=== PATIENT | female | born 1945 | race Caucasian/White ===

== ENCOUNTER 2019-06-11 16:20 | Emergency (ER) | payer MEDICARE, OTHER ==
--- NOTE | 2019-06-11 16:52 | Emergency Department Record ---
History of Present Illness - General Chief complaint: Extremity Problem Stated complaint: PAINFUL FOOT Time Seen by Provider: 06/11/19 16:35 Source: Patient Mode of Arrival: Ambulatory Limitations: No limitations - History of Present Illness Initial comments: The patient is here due to R foot pain for 2 days. She denies any specific injury but states she has been doing a lot of walking recently. Now there is pain and swelling to the top of the R foot. Complaint: Extremity pain Onset/Timin -: Days(s) Location: Right, Foot History of Same: No Severity scale (1-10): 5 Quality: Aching Consistency: Constant Improves with: Nothing Worsens with: Walking, Weight bearing - Related Data Home Medications Medication Instructions Recorded Confirmed Last Taken Amiodarone HCl [Pacerone] 100 mg PO DAILY 06/11/19 06/11/19 06/11/19 Escitalopram Oxalate [Lexapro] 10 mg PO DAILY 06/11/19 06/11/19 06/11/19 Lisinopril 20 mg PO DAILY 06/11/19 06/11/19 06/11/19 Multivitamin [Multi-Vitamin Daily] 1 each PO DAILY 06/11/19 06/11/19 06/11/19 Rivaroxaban [Xarelto] 20 mg PO DAILY 06/11/19 06/11/19 06/11/19 Simvastatin [Zocor] 10 mg PO DAILY 06/11/19 06/11/19 06/11/19 Allergies Allergy/AdvReac Type Severity Reaction Status Date / Time aspirin Allergy RASH Verified 06/11/19 16:28 Travel Screening - Travel/Exposure Within Last 30 Days Have you traveled within the last 30 days?: No - Travel/Exposure Within Last Year Have you traveled outside the [place] in the last year?: No - Additonal Travel Details Have you been exposed to anyone with a communicable illness?: No - Travel Symptoms Symptom Screening: None Review of Systems Constitutional: Denies: Chills Eyes: Denies: Eye discharge ENT: Denies: Congestion Respiratory: Denies: Cough Past Medical History - SOCIAL HISTORY Smoking Status: Never smoker Alcohol Use: None Drug Use: None - RESPIRATORY Hx Respiratory Disorders: No - CARDIOVASCULAR Hx Cardio Disorders: Yes Hx Irregular Heartbeat: Yes (A Fib) - NEURO Hx Neuro Disorders: No - GI Hx GI Disorders: No - Hx Genitourinary Disorders: No - ENDOCRINE Hx Endocrine Disorders: No - MUSCULOSKELETAL Hx Musculoskeletal Disorders: Yes Hx Osteoporosis: Yes - PSYCH Hx Psych Problems: No - HEMATOLOGY/ONCOLOGY Hx Hematology/Oncology Disorders: No Family Medical History Any Significant Family History?: Yes Hx Heart Disease: Father, Mother Hx Kidney Disease: Mother Physical Exam - General General Appearance: Alert, Oriented x3, Cooperative, No acute distress - Head Head exam: Atraumatic - Eye Eye exam: Normal appearance - Extremities Extremities exam: Normal capillary refill, Tenderness (There is tenderness to the dorsal proximal R midfoot.). negative: Normal inspection (There is mild swelling to the doral mid midfoot area but with no bruising or erythema.), Full ROM Image of Feet: 1 - Area of pain and swelling. Course Vital Signs 06/11/19 16:34 Temperature 98.1 F Pulse Rate 66 Respiratory 18 Rate Blood Pressure 108/71 Pulse Ox 96 - Reevaluation(s) Reevaluation #1: I did discuss the neg xrays for any acute fx or dislocation with the patient. She is to ice and elevate the R foot and is to see a foot doctor next week if not better. 06/11/19 17:37 Medical Decision Making - Data Complexity MDM Data: X-Ray Ordered and/or Reviewed - Radiology Data Radiology results: Report reviewed (R foot: mulitlevel deg joint changes, soft tissue swelling dorsally. Neg for acute changes.) Disposition Disposition: Discharge Clinical Impression: Foot pain, right Disposition: Home, Self-Care Condition: (2) Stable Instructions: Arthralgia (ED) Additional Instructions: Please use the hard soled shoe for a week and ice and elevate the foot. Use Tylenol for pain. Please see a foot doctor next week for recheck. Return to the ER for any worsening issues. Forms: Patient Portal Access Time of Disposition: 17:34 Quality - Quality Measures Quality Measures: N/A - Blood Pressure Screening View Details: Yes Does Patient Have Any of the Following: No Blood Pressure Classification: Normal BP Reading Systolic Measurement: 108 Diastolic Measurement: 71 Screening for High Blood Pressure: < Normal BP, F/U Not Required > [G8784]
--- NOTE | 2019-06-12 20:56 | RADIOLOGY REPORT ---
EXAM: FOOT, RIGHT 3 VIEWS HISTORY: PAIN AND SWELLING RIGHT FOOT AFTER WALKING ON [place]. TECHNIQUE: Three views right foot. COMPARISON: None. ENCOUNTER: Initial. FINDINGS: No definite acute fracture or dislocation of the right foot identified. 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 Prominent calcaneal spurs along the plantar surface, less so posteriorly as well. Some soft tissue swelling overlying the dorsal aspect of the foot proximally at the level of the tarsals. IMPRESSION: 1. MULTILEVEL DEGENERATIVE CHANGE IN THE RIGHT FOOT, DETAILED ABOVE. 2. SOME SOFT TISSUE SWELLING ALONG THE DORSAL ASPECT OF THE FOOT PROXIMALLY. 3. NO DEFINITE ACUTE FRACTURE OF THE RIGHT FOOT IDENTIFIED. JOB NUMBER: [id number] MTDD
== END 2019-06-11 17:39 | disposition home or self-care (01) ==
LOC: ER 16:20
DX: M79.671 Pain in right foot (principal); G89.11 Acute pain due to trauma; X50.0XXA Overexertion from strenuous movement or load, initial encounter; Y93.01 Activity, walking, marching and hiking
CPT/HCPCS: 99283

== ENCOUNTER 2019-08-30 10:12 | Emergency (ER) | payer MEDICARE, OTHER ==
--- NOTE | 2019-08-30 11:28 | RADIOLOGY REPORT ---
EXAMINATION: Left Knee, Three Views EXAM DATE: 08/30/2019 11:15 AM TECHNIQUE: Frontal, lateral, and oblique INDICATION: fall COMPARISON: None ENCOUNTER: Initial FINDINGS: Normal bony architecture. Arthroplasty. No acute fracture or dislocation. IMPRESSION: No acute abnormality, follow-up bone scan if symptoms persist Dictated by: Johnson Rodríguez MD on 08/30/2019 11:24 AM. .
--- NOTE | 2019-08-30 11:30 | CT SCAN REPORT ---
EXAMINATION: CT Head without IV Contrast EXAM DATE: 08/30/2019 11:19 AM TECHNIQUE: Standard protocol CT images of the head were obtained without intravenous contrast. Dunn l and sagittal reconstructed images were created. INDICATION: fall COMPARISON: None HAND DOMINANCE: Unknown. ENCOUNTER: Not applicable FINDINGS: Small right forehead soft tissue hematoma. No acute intracranial hemorrhage or depressed calvarial fr acture. Mild volume loss not unusual for age with corresponding ventricular enlargement. Partial empty sella noted. Moderate low-attenuation changes in the periatrial white matter are nonspecific but may be due to old small vessel ischemic change. No mass or acute cortical infarct evident. Prior bilateral lens surgery. Incidental focus of fat deposition along the frontal falx noted. IMPRESSION: 1. Soft tissue injury without acute intracranial hemorrhage. 2. Aging changes and old small vessel ischemic changes. Dictated by: Haja Waldrop MD on 08/30/2019 11:24 AM. .
--- NOTE | 2019-08-30 11:33 | CT SCAN REPORT ---
EXAMINATION: MAXILLOFACIAL WO CONTRAST EXAM DATE: 08/30/2019 11:19 AM TECHNIQUE: Standard axial noncontrast CT facial bones with sagittal and coronal 2-dimensional recons tructions. INDICATION: fall COMPARISON: Concurrent CT brain and CT cervical spine studies. ENCOUNTER: Initial FINDINGS: No acute facial fracture evident. Mild paranasal sinus mucosal thickening. Mild degenerative changes at the temporomandibular joints. Prior bilateral lens surgery. Cervical spine degenerative changes are partially included. Right forehead soft tissue hematoma noted . IMPRESSION: No acute facial fracture evident. Dictated by: Haja Waldrop MD on 08/30/2019 11:28 AM. .
--- NOTE | 2019-08-30 11:38 | CT SCAN REPORT ---
EXAMINATION: CT Cervical Spine without IV Contrast EXAM DATE: 08/30/2019 11:19 AM TECHNIQUE: Standard protocol cervical spine CT imaging was performed without intravenous contrast. Co bakari and sagittal images were reconstructed. INDICATION: fall COMPARISON: None ENCOUNTER: Not applicable FINDINGS: No acute cervical spine fracture evident. Dystrophic calcifications at the craniocervical junction are noted. There is fusion across the right C2-C3 and C3-C4 facet joints and across the left C3-C4 facet joint. Fusion across the C3-C4 disc spac e level. Minimal spondylolisthesis at C3-C4. Large osteophyte at C4-C5 anteriorly nearly bridges the disc space level. Mild endplate spurring and moderate right facet spurring at that level. Fusion across the C5-C6 disc space level and partial fusion across the left facet joint. Bridging ant erior osteophyte at C6-C7. Moderate anterior osteophyte at C7-T1. Carotid bifurcation region calcific atherosclerotic changes are noted. IMPRESSION: 1. No acute cervical spine fracture. 2. Moderate degenerative changes with multilevel fusions. Dictated by: Haja Waldrop MD on 08/30/2019 11:31 AM. .
--- NOTE | 2019-08-30 11:53 | Emergency Department Record ---
History of Present Illness - General Chief Complaint: Fall Injury Stated Complaint: FALL/HEAD INJURY Time Seen by Provider: 08/30/19 10:20 Source: Patient Mode of Arrival: Wheelchair Limitations: No limitations - History of Present Illness Initial Comments: pt slipped on ice and fell face forward. she injured her face and l knee and l hand. she had no loc MD Complaint: Fall Onset/Timin -: Minutes(s) Fall From: Standing When Fall Occurred: 1-3 hours [employer] Fall Witnessed: Yes, by family Place Fall Occurred: Home Loss of Consciousness: None Prolonged Down Time?: No Symptoms Prior to Fall: None Location: Face Location - Extremities: Left: Hand, Knee Severity: Moderate Severity scale (1-10): 7 Quality: Aching - Ivis Coma Scale Eye Response: (4) Open spontaneously Motor Response: (6) Obeys commands Verbal Response: (5) Oriented Ivis Total: 15 - Related Data Allergies Allergy/AdvReac Type Severity Reaction Status Date / Time aspirin Allergy ABDOMINAL Unverified 08/30/19 10:21 PAIN Travel Screening - Travel/Exposure Within Last 30 Days Have you traveled within the last 30 days?: Yes Location Detail:: Pt from [place] - Travel/Exposure Within Last Year Have you traveled outside the [place] in the last year?: No - Additonal Travel Details Have you been exposed to anyone with a communicable illness?: No - Travel Symptoms Symptom Screening: None Review of Systems Reviewed: No additional complaints except as noted below Constitutional: Reports: As per HPI. Denies: Chills, Fever, Malaise, Night sweats, Weakness, Weight change Eyes: Reports: As per HPI. Denies: Eye discharge, Eye pain, Photophobia, Vision change ENT: Reports: As per HPI. Denies: Congestion, Dental pain, Ear pain, Epistaxis, Hearing loss, Throat pain Respiratory: Reports: As per HPI. Denies: Cough, Dyspnea, Hemoptysis, Stridor, Wheezes Cardiovascular: Reports: As per HPI. Denies: Arrhythmia, Chest pain, Dyspnea on exertion, Edema, Murmurs, Orthopnea, Palpitations, Paroxysmal nocturnal dyspnea, Rheumatic Fever, Syncope Endocrine: Reports: As per HPI. Denies: Fatigue, Heat or cold intolerance, Polydipsia, Polyuria Gastrointestinal: Reports: As per HPI. Denies: Abdominal pain, Constipation, Diarrhea, Hematemesis, Hematochezia, Melena, Nausea, Vomiting Genitourinary: Reports: As per HPI. Denies: Abnormal menses, Discharge, Dyspareunia, Dysuria, Frequency, Hematuria, Incontinence, Retention, Urgency Musculoskeletal: Reports: As per HPI. Denies: Arthralgia, Back pain, Gout, Joint swelling, Myalgia, Neck pain Skin: Reports: As per HPI. Denies: Bruising, Change in color, Change in hair/nails, Lesions, Pruritus, Rash Neurological: Reports: As per HPI. Denies: Abnormal gait, Confusion, Headache, Numbness, Paresthesias, Seizure, Tingling, Tremors, Vertigo, Weakness Psychiatric: Reports: As per HPI. Denies: Anxiety, Auditory hallucinations, Depression, Homicidal thoughts, Suicidal thoughts, Visual hallucinations Hematological/Lymphatic: Reports: As per HPI. Denies: Anemia, Blood Clots, Easy bleeding, Easy bruising, Swollen glands Past Medical History - SOCIAL HISTORY Smoking Status: Never smoker Alcohol Use: None Drug Use: None - RESPIRATORY Hx Respiratory Disorders: No - CARDIOVASCULAR Hx Cardio Disorders: Yes Hx Hypertension: Yes Hx Irregular Heartbeat: Yes (A Fib) - NEURO Hx Neuro Disorders: No - GI Hx GI Disorders: No - Hx Genitourinary Disorders: No - ENDOCRINE Hx Endocrine Disorders: No Hx Diabetes: No Hx Thyroid Disease: No - MUSCULOSKELETAL Hx Musculoskeletal Disorders: Yes Hx Osteoporosis: Yes - PSYCH Hx Psych Problems: No - HEMATOLOGY/ONCOLOGY Hx Hematology/Oncology Disorders: No Family Medical History Any Significant Family History?: Yes Hx Heart Disease: Father, Mother Hx Kidney Disease: Mother Physical Exam - General General Appearance: Alert, Oriented x3, Cooperative, Mild distress - Head Head exam: Normal inspection Head exam detail: Abrasion, Contusion, Hematoma Image of Face/Head: 1 - abrasion, hematoma 2 - contusion, swelling - Eye Eye exam: Normal appearance, PERRL, EOMI Pupils: Normal accommodation - ENT ENT exam: Normal exam, Mucous membranes moist, Normal external ear exam, Normal orophraynx Ear exam: Normal external inspection. negative: External canal tenderness Nasal Exam: Normal inspection. negative: Discharge, Sinus tenderness Mouth exam: Normal external inspection, Tongue normal Teeth exam: Normal inspection. negative: Dental caries Throat exam: Normal inspection. negative: Tonsillar erythema, Tonsillar exudate - Neck Neck exam: Normal inspection, Full ROM. negative: Tenderness - Respiratory Respiratory exam: Normal lung sounds bilaterally. negative: Respiratory distress - Cardiovascular Cardiovascular Exam: Regular rate, Normal rhythm, Normal heart sounds - GI/Abdominal GI/Abdominal exam: Soft, Normal bowel sounds. negative: Tenderness - Rectal Rectal exam: Deferred - exam: Deferred - Extremities Extremities exam: Full ROM, Normal capillary refill, Tenderness (l knee with contusion) - Back Back exam: Reports: Normal inspection, Full ROM. Denies: Muscle spasm, Rash noted, Tenderness - Neurological Neurological exam: Alert, CN II-XII intact, Normal gait, Oriented X3 - Psychiatric Psychiatric exam: Normal affect, Normal mood - Skin Skin exam: Dry, Intact, Normal color, Warm Course Vital Signs 08/30/19 10:13 Temperature 98.6 F Pulse Rate 59 L Respiratory 18 Rate Blood Pressure 149/76 Pulse Ox 97 Disposition Disposition: Discharge Clinical Impression: Multiple contusions Head injury Qualifiers: Encounter type: initial encounter Qualified Code(s): S09.90XA - Unspecified injury of head, initial encounter Disposition: Home, Self-Care Condition: (1) Good Instructions: Head Injury (ED), Contusion in Adults (ED) Additional Instructions: follow up with family doctor. return sooner if worse. sleep elevated. ice to sore areas. tylenol for pain. skip next dose of xarelto. Quality - Quality Measures Quality Measures: N/A - Blood Pressure Screening Does Patient Have Any of the Following: Active Dx of HTN Blood Pressure Classification: Hypertensive Reading Systolic Measurement: 149 Diastolic Measurement: 76 Screening for High Blood Pressure: Patient Exclusion, Hx of HTN [G9744]
[2019-08-30] MEDS ORDERED: ACETAMINOPHEN 500 MG TABLET PO ONE (11:58)
== END 2019-08-30 12:15 | disposition home or self-care (01) ==
LOC: ER 10:12
DX: S80.02XA Contusion of left knee, initial encounter (principal); S60.222A Contusion of left hand, initial encounter; S00.83XA Contusion of other part of head, initial encounter; S00.81XA Abrasion of other part of head, initial encounter; W00.0XXA Fall on same level due to ice and snow, initial encounter; Y92.009 Unspecified place in unspecified non-institutional (private) residence as the place of occurrence of the external cause; I10 Essential (primary) hypertension; I48.91 Unspecified atrial fibrillation
CPT/HCPCS: 70450; 70486; 72125; 99285

== ENCOUNTER 2019-10-04 18:07 | Observation (INO) | payer MEDICARE, OTHER ==
--- NOTE | 2019-10-04 18:16 | Emergency Department Record ---
History of Present Illness - General Chief Complaint: Arrythmia/Palpitations Stated Complaint: AFIB Time Seen by Provider: 10/04/19 18:08 Source: Patient Mode of Arrival: Ambulatory Limitations: No limitations - History of Present Illness Initial Comments: 73 yo female presents to ED for evaluation of an irregular heart beat, reports a previous history of atrial fibrillation. Patient reports that she takes Pacerone daily, denies any changes in her medications. Patient is also anticoagulated with Xarelto daily. Patient denies fevers, chills, cough, or recent illness. Patient denies chest discomfort or history of GA previously. MD Complaint: Atrial fibrillation Onset/Timin -: Days(s) Arrythmia History: Atrial fibrillation Associated Symptoms: Shortness of breath Treatments Prior to Arrival: Amiodarone - Related Data Allergies Allergy/AdvReac Type Severity Reaction Status Date / Time aspirin AdvReac ABDOMINAL Unverified 10/04/19 18:11 PAIN Travel Screening - Travel/Exposure Within Last 30 Days Have you traveled within the last 30 days?: No Review of Systems Constitutional: Denies: Chills, Fever, Malaise, Night sweats Eyes: Denies: Eye discharge, Eye pain ENT: Denies: Congestion, Ear pain, Epistaxis Respiratory: Denies: Cough, Dyspnea Cardiovascular: Reports: Arrhythmia, Palpitations. Denies: Chest pain, Dyspnea on exertion Endocrine: Denies: Fatigue, Heat or cold intolerance Gastrointestinal: Denies: Abdominal pain, Nausea, Vomiting Genitourinary: Denies: Incontinence, Retention Musculoskeletal: Denies: Arthralgia, Back pain Skin: Denies: Bruising, Change in color Neurological: Denies: Abnormal gait, Confusion, Headache Psychiatric: Denies: Anxiety Hematological/Lymphatic: Reports: Easy bleeding, Easy bruising. Denies: Anemia, Blood Clots Past Medical History - SOCIAL HISTORY Smoking Status: Never smoker Drug Use: None - RESPIRATORY Hx Respiratory Disorders: No - CARDIOVASCULAR Hx Cardio Disorders: Yes Hx Hypertension: Yes Hx Irregular Heartbeat: Yes (A Fib) - NEURO Hx Neuro Disorders: No - GI Hx GI Disorders: No - Hx Genitourinary Disorders: No - ENDOCRINE Hx Endocrine Disorders: No Hx Diabetes: No Hx Thyroid Disease: No - MUSCULOSKELETAL Hx Musculoskeletal Disorders: Yes Hx Osteoporosis: Yes - PSYCH Hx Psych Problems: No - HEMATOLOGY/ONCOLOGY Hx Hematology/Oncology Disorders: No Family Medical History Hx Heart Disease: Father, Mother Hx Kidney Disease: Mother Physical Exam - General General Appearance: Alert, Oriented x3, Cooperative, Mild distress Limitations: No limitations - Head Head exam: Atraumatic, Normocephalic, Normal inspection Head exam detail: negative: Abrasion, Contusion, Priest's sign, General tenderness, Hematoma, Laceration - Eye Eye exam: Normal appearance. negative: Conjunctival injection, Periorbital swelling, Periorbital tenderness, Scleral icterus - ENT Ear exam: negative: Auricular hematoma, Auricular trauma Nasal Exam: negative: Active bleeding, Discharge, Dried blood, Foreign body Mouth exam: negative: Drooling, Laceration, Muffled voice, Tongue elevation - Neck Neck exam: Normal inspection. negative: Meningismus, Tenderness - Respiratory Respiratory exam: Normal lung sounds bilaterally. negative: Respiratory distress, Rhonchi, Stridor, Wheezes - Cardiovascular Cardiovascular Exam: Normal rhythm, Normal heart sounds, Irregular rhythm - GI/Abdominal GI/Abdominal exam: Soft. negative: Distended, Rebound, Rigid, Tenderness - Rectal Rectal exam: Deferred - exam: Deferred - Extremities Extremities exam: Normal inspection. negative: Pedal edema, Tenderness - Back Back exam: Denies: CVA tenderness (R), CVA tenderness (L) - Neurological Neurological exam: Alert, Normal gait, Oriented X3 - Psychiatric Psychiatric exam: Normal affect, Normal mood - Skin Skin exam: Normal color. negative: Abrasion Type of lesion: negative: abrasion Course Vital Signs 10/04/19 18:08 Pulse Rate 133 H Respiratory 28 H Rate Blood Pressure 119/92 Pulse Ox 97 - Reevaluation(s) Reevaluation #1: 10/04/19 18:23 EKG: Atrial Fibrillation 118 Normal axis, irregular rhythm Nonspecific ST-T wave changes Reevaluation #2: 10/04/19 18:39 Laboratory studies were reviewed and appear grossly unremarkable for an acute process except for the followin10/04/19 18:51 Patient was updated on all results, repeat pulse now improved to around 100. Will admit for cardiology consultation in the AM for possible cardioversion. Case was discussed with Dr. Bender, will accept admission at this time. Medical Decision Making - Lab Data Result diagrams: 10/04/19 18:10 10/04/19 18:10 Disposition Disposition: Admit Clinical Impression: Atrial fibrillation with rapid ventricular response Disposition: Still a Patient at [facility] Decision to Admit: Admit from ER Decision to Admit Date: 10/04/19 Decision to Admit Time: 18:54 Condition: (2) Stable Forms: Patient Portal Access Time of Disposition: 18:54 Quality - Quality Measures Quality Measures: N/A - Blood Pressure Screening Does Patient Have Any of the Following: Active Dx of HTN Blood Pressure Classification: Hypertensive Reading Systolic Measurement: 119 Diastolic Measurement: 92 Screening for High Blood Pressure: Patient Exclusion, Hx of HTN [G9744]
[2019-10-04 18:23] LABS: ABSOLUTE NEUTROPHIL COUNT 3.77; BASO % 0.9 % (0-6); HEMATOCRIT 38.7 % (35.0-47.0); HEMOGLOBIN 11.7 gm/dl (11.6-16.0); LYMPH % 32.4 % (16-45); MEAN CELL VOLUME 82.2 fl (81-97); MEAN CORPUSCULAR HEMOGLOBIN 24.8 pg (27-33); MEAN CORPUSCULAR HGB CONC 30.2 g/dl (32-36); MEAN PLATELET VOLUME 9.8 fl (7.4-10.4); MONO % 7.7 % (0-9); PLATELET COUNT 411 K/uL (130-400); RED BLOOD COUNT 4.71 M/uL (3.80-5.40); RED CELL DISTRIBUTION WIDTH 15.2 % (11.5-14.5); WHITE BLOOD COUNT W/O DIFF 6.7 K/uL (4.2-12.2)
[2019-10-04] MEDS: DILTIAZEM HCL 125 MG in 0.9 % SODIUM CHLORIDE 100ML 100 ML IV SCH (18:31)
[2019-10-04 18:35] LABS: BLOOD UREA NITROGEN 14 mg/dL (8-23); CREATININE 0.9 mg/dL (0.5-0.9); EST GLOMERULAR FILTRATION RATE > 60 mL/min
[2019-10-04 18:36] LABS: TOTAL PROTEIN 7.2 g/dL (6.6-8.7)
[2019-10-04 18:38] LABS: GLUCOSE,RANDOM 124 mg/dL (74-109)
[2019-10-04 18:41] LABS: ALB/GLOB RATIO 1.4 (1.1-1.8); ALBUMIN 4.2 g/dL (4.0-5.0); ALKALINE PHOSPHATASE 68 U/L (35-104); ALT/SGPT 10 U/L (<33); AST/SGOT 15 U/L (10.0-35.0)
[2019-10-04] MEDS ORDERED: MAGNESIUM HYDROXIDE/AL HYDROX 30 ML, LIDOCAINE VISC 2% 15ML 15 ML PO ONE ×2 (18:46)
[2019-10-04] MEDS ORDERED: HYOSCYAMINE SULFATE ODT 0.125 MG TAB.SUBL SL ONE ×2 (19:02)
[2019-10-04] MEDS ORDERED: 0.9 % SODIUM CHLORIDE 1000ML 1,000 ML IV ONE (19:21)
[2019-10-05] MEDS: ESCITALOPRAM 10 MG TABLET PO SCH (09:23)
[2019-10-05] MEDS: RIVAROXABAN 20 MG TABLET PO SCH (09:23)
[2019-10-05] MEDS: SIMVASTATIN 10MG TABLET PO SCH (09:23)
[2019-10-05] MEDS: LISINOPRIL 20 MG TABLET PO SCH (09:24)
[2019-10-05] MEDS ORDERED: AMIODARONE HCL 200 MG TABLET PO SCH (10:00)
--- NOTE | 2019-10-05 12:51 | History & Physical ---
History of Present Illness - Date of Service Date of Service for History & Physical: 10/05/19 - History of Present Illness Admitting Diagnosis: Atrial Fibrillation with RVR History of Present Illness: Patient wake up at 9 am on the day of admission 10/04/2019 with tachycardia and SOB and some chest heaviness and she knew she was in atrial fib because this has happened before. She is here visiting from [place] and will be here till November. Her Pit Inspector is in [place]. She has had crdioversion before about 2 years ago. PMH atrial fib for 10 years and on xarelto. History of PE few years ago, concussion fell and hit head on concrete and CT of head negative. Currently she is feeling better but she can sense her irregular pulse and rhythm in her chest Travel Screening - Travel/Exposure Within Last 30 Days Have you traveled within the last 30 days?: No - Travel/Exposure Within Last Year Have you traveled outside the [place] in the last year?: No - Additonal Travel Details Have you been exposed to anyone with a communicable illness?: No - Travel Symptoms Symptom Screening: None Review of Systems Constitutional: Denies: Chills, Fever, Malaise, Night sweats Eyes: Denies: Eye discharge, Eye pain ENT: Denies: Congestion, Ear pain, Epistaxis Respiratory: Denies: Cough, Dyspnea Cardiovascular: Reports: Arrhythmia, Palpitations. Denies: Chest pain, Dyspnea on exertion Endocrine: Denies: Fatigue, Heat or cold intolerance Gastrointestinal: Denies: Abdominal pain, Nausea, Vomiting Genitourinary: Denies: Incontinence, Retention Musculoskeletal: Denies: Arthralgia, Back pain Skin: Denies: Bruising, Change in color Neurological: Denies: Abnormal gait, Confusion, Headache Psychiatric: Denies: Anxiety Hematological/Lymphatic: Reports: Easy bleeding, Easy bruising. Denies: Anemia, Blood Clots Past Medical History - SOCIAL HISTORY Smoking Status: Never smoker Alcohol Use: None Drug Use: None - RESPIRATORY Hx Respiratory Disorders: No - CARDIOVASCULAR Hx Cardio Disorders: Yes Hx Hypertension: Yes Hx Irregular Heartbeat: Yes (A Fib) - NEURO Hx Neuro Disorders: Yes Hx Dizziness: Yes - GI Hx GI Disorders: No - Hx Genitourinary Disorders: No - ENDOCRINE Hx Endocrine Disorders: No Hx Diabetes: No Hx Thyroid Disease: No - MUSCULOSKELETAL Hx Musculoskeletal Disorders: Yes Hx Osteoporosis: Yes - PSYCH Hx Psych Problems: No - HEMATOLOGY/ONCOLOGY Hx Hematology/Oncology Disorders: No Family Medical History Any Significant Family History?: Yes Hx Heart Disease: Father, Mother Hx Kidney Disease: Mother H&P Meds/Allergies - Allergies Allergies: Allergies Allergy/AdvReac Type Severity Reaction Status Date / Time aspirin AdvReac ABDOMINAL Unverified 10/04/19 18:11 PAIN - Home Medications Home Medications Medication Instructions Recorded Confirmed Last Taken Escitalopram Oxalate [Lexapro] 20 mg PO DAILY 10/05/19 10/05/19 Unknown - Active Medications Active Medications: Current Medications Amiodarone HCl (Pacerone) 100 mg PO DAILY [facility] Last Admin: 10/05/19 09:24 Dose: 100 mg Documented by: Escitalopram Oxalate (Lexapro) 10 mg PO DAILY [facility] Last Admin: 10/05/19 09:23 Dose: 10 mg Documented by: Diltiazem HCl 125 mg/ Sodium (Chloride) 125 mls @ 5 mls/hr IV TITRATE [facility]; Protocol Last Admin: 10/04/19 18:31 Dose: 5 mg/hr, 5 mls/hr Documented by: Sodium Chloride () 1,000 mls @ 42 mls/hr IV .[id number] ONE Stop: 10/05/19 19:09 Last Admin: 10/04/19 21:01 Dose: 42 mls/hr Documented by: Lisinopril (Zestril) 20 mg PO DAILY [facility] Last Admin: 10/05/19 09:24 Dose: 20 mg Documented by: Rivaroxaban (Xarelto) 20 mg PO DAILY [facility] Last Admin: 10/05/19 09:23 Dose: 20 mg Documented by: Simvastatin (Zocor) 10 mg PO DAILY [facility] Last Admin: 10/05/19 09:23 Dose: 10 mg Documented by: Physical Exam - Vital Signs Vital Signs: Vital Signs - Last 24 Hrs Temp Pulse Pulse Resp BP BP BP 10/05/19 09:20 98.7 F 78 16 112/83 10/05/19 09:00 78 16 10/05/19 04:00 98.0 F 94 H 16 128/70 10/05/19 00:00 98.0 F 75 18 122/67 10/04/19 20:41 18 10/04/19 19:52 16 10/04/19 19:28 99.3 F 84 18 122/101 02/04/20 19:12 112 H 20 108/95 10/04/19 18:42 113 H 22 106/62 10/04/19 18:08 99.2 F 133 H 28 H 119/92 Pulse Ox 10/05/19 09:20 95 10/05/19 09:00 10/05/19 04:00 96 10/05/19 00:00 96 10/04/19 20:41 10/04/19 19:52 10/04/19 19:28 94 L 10/04/19 19:12 99 10/04/19 18:42 98 10/04/19 18:08 97 - General General Appearance: Alert, Oriented x3, Cooperative, Mild distress Limitations: No limitations - Head Head exam: Atraumatic, Normocephalic, Normal inspection Head exam detail: negative: Abrasion, Contusion, Priest's sign, General tenderness, Hematoma, Laceration - Eye Eye exam: Normal appearance. negative: Conjunctival injection, Periorbital swelling, Periorbital tenderness, Scleral icterus - ENT Ear exam: negative: Auricular hematoma, Auricular trauma Nasal Exam: negative: Active bleeding, Discharge, Dried blood, Foreign body Mouth exam: negative: Drooling, Laceration, Muffled voice, Tongue elevation - Neck Neck exam: Normal inspection. negative: Meningismus, Tenderness - Respiratory Respiratory exam: Normal lung sounds bilaterally. negative: Respiratory distress, Rhonchi, Stridor, Wheezes - Cardiovascular Cardiovascular Exam: Normal rhythm, Normal heart sounds, Irregular rhythm - GI/Abdominal GI/Abdominal exam: Soft. negative: Distended, Rebound, Rigid, Tenderness - Rectal Rectal exam: Deferred - exam: Deferred - Extremities Extremities exam: Normal inspection. negative: Pedal edema, Tenderness - Back Back exam: Denies: CVA tenderness (R), CVA tenderness (L) - Neurological Neurological exam: Alert, Normal gait, Oriented X3 - Psychiatric Psychiatric exam: Normal affect, Normal mood - Skin Skin exam: Normal color. negative: Abrasion Type of lesion: negative: abrasion Results - Labs Result Diagrams: 10/04/19 18:10 10/04/19 18:10 Labs Last 24 Hours: Laboratory Results - last 24 hr 10/04/19 10/04/19 10/05/19 18:10 18:10 02:40 WBC 6.7 RBC 4.71 Hgb 11.7 Hct 38.7 MCV 82.2 MCH 24.8 L MCHC 30.2 L RDW 15.2 H Plt Count 411 H MPV 9.8 Gran % 56.0 Lymphocytes % 32.4 Monocytes % 7.7 Eosinophils % 3.0 Basophils % 0.9 Absolute Neutrophils 3.77 Sodium 141 Potassium 4.0 Chloride 106 Carbon Dioxide 22.0 Anion Gap 13.0 BUN 14 Creatinine 0.9 Estimated GFR > 60 Random Glucose 124 H Calcium 9.5 Total Bilirubin 0.50 AST 15 ALT 10 Alkaline Phosphatase 68 Troponin T < 0.010 < 0.010 Total Protein 7.2 Albumin 4.2 Globulin 3.0 Albumin/Globulin Ratio 1.4 10/05/19 11:18 WBC RBC Hgb Hct MCV MCH MCHC RDW Plt Count MPV Gran % Lymphocytes % Monocytes % Eosinophils % Basophils % Absolute Neutrophils Sodium Potassium Chloride Carbon Dioxide Anion Gap BUN Creatinine Estimated GFR Random Glucose Calcium Total Bilirubin AST ALT Alkaline Phosphatase Troponin T < 0.010 Total Protein Albumin Globulin Albumin/Globulin Ratio VTE H&P Assessment - Risk for VTE Risk for VTE: Yes Risk Level: Moderate Risk Assessment Date: 10/05/19 Risk Assessment Time: 12:51 VTE Orders Placed or Will Be Placed: Yes Plan - Detailed Diagnosis and Plan (1) Hypertension Current Visit: Yes Status: Acute Base Code: I10 - ESSENTIAL (PRIMARY) HYPERTENSION (2) Atrial fibrillation with rapid ventricular response Current Visit: Yes Status: Acute Base Code: I48.91 - UNSPECIFIED ATRIAL FIBRILLATION Comment: rate is being controlled with a cardizem drip 5 mg per hour cardiology consult today
[2019-10-05] MEDS: DILTIAZEM HCL 125 MG in 0.9 % SODIUM CHLORIDE 100ML 100 ML IV SCH (19:10)
--- NOTE | 2019-10-06 08:46 | Discharge Summary ---
Providers Discharge Summary Date: 10/06/19 Date of admission: 10/04/19 19:09 Expected Date of Discharge: 10/06/19 Attending physician: Jose Bender Primary care physician: RACHEL BYRD Consults: Consult Orders 10/05/19 06:47 Consult - Cardiology NOW Consulting Provider: Jose Bender Physician Instructions: Reason For Exam: New onset Afib with a history of Afib Does pt have current biomedical analytical scientist?: Other Comment: Group in [facility] Physical Exam - Vital Signs Vital Signs: Vital Signs - Last 24 Hrs Temp Pulse Pulse Resp BP Pulse Ox 10/06/19 08:00 98.7 F 70 15 117/70 96 10/06/19 04:00 98.6 F 65 18 148/76 96 10/05/19 21:00 64 16 10/05/19 20:00 98.6 F 69 20 144/68 97 10/05/19 16:00 99.4 F 68 18 135/78 97 10/05/19 14:00 98.5 F 84 16 116/77 94 L 10/05/19 09:20 98.7 F 78 16 112/83 95 10/05/19 09:00 78 16 - General General Appearance: Alert, Oriented x3, Cooperative, Mild distress Limitations: No limitations - Head Head exam: Atraumatic, Normocephalic, Normal inspection Head exam detail: negative: Abrasion, Contusion, Priest's sign, General tenderness, Hematoma, Laceration - Eye Eye exam: Normal appearance. negative: Conjunctival injection, Periorbital swelling, Periorbital tenderness, Scleral icterus - ENT Ear exam: negative: Auricular hematoma, Auricular trauma Nasal Exam: negative: Active bleeding, Discharge, Dried blood, Foreign body Mouth exam: negative: Drooling, Laceration, Muffled voice, Tongue elevation - Neck Neck exam: Normal inspection. negative: Meningismus, Tenderness - Respiratory Respiratory exam: Normal lung sounds bilaterally. negative: Respiratory distress, Rhonchi, Stridor, Wheezes - Cardiovascular Cardiovascular Exam: Regular rate, Normal rhythm, Normal heart sounds - GI/Abdominal GI/Abdominal exam: Soft. negative: Distended, Rebound, Rigid, Tenderness - Rectal Rectal exam: Deferred - exam: Deferred - Extremities Extremities exam: Normal inspection. negative: Pedal edema, Tenderness - Back Back exam: Denies: CVA tenderness (R), CVA tenderness (L) - Neurological Neurological exam: Alert, Normal gait, Oriented X3 - Psychiatric Psychiatric exam: Normal affect, Normal mood - Skin Skin exam: Normal color. negative: Abrasion Type of lesion: negative: abrasion Hospitalization - Hospitalization Admission Diagnosis: Atrial Fibrillation with RVR - Problem List/Discharge Diagnosis (1) Hypertension Current Visit: Yes Status: Acute Base Code: I10 - ESSENTIAL (PRIMARY) HYPERTENSION (2) Atrial fibrillation with rapid ventricular response Current Visit: Yes Status: Acute Base Code: I48.91 - UNSPECIFIED ATRIAL FIBRILLATION Comment: rate is being controlled with a cardizem drip 5 mg per hour cardiology consult today (3) Atrial fib/flutter, transient Current Visit: Yes Status: Acute Base Code: IWA4834 - Comment: patient converted to NSR while on a cardizem drip during the night - Disposition patient is being discharged home to follow up with her primary Dr or biomedical analytical scientist in [place] when back or can return to the ED increase amiodarone to 200 mg per day - Hospitalization Course Disposition: Home, Self-Care Hospital Course: patient came in to ED with atrial fib with a fast rate and history of this and placed on a cardizem drip which controlled her rate and she was admitted for possible conversion tomorrow with cardiology and she converted during the night to NSR . Discussed case with cardiology and can discharge to follow up with her biomedical analytical scientist when she is back to [place]. Also will increase amiodarone to 200 mg per day. Procedures: Cardiology Procedures 10/04/19 18:08 EKG NOW 10/04/19 19:21 Provider Education Specialist .Continuous 10/05/19 12:55 EKG NOW 10/05/19 17:19 Echo W/CF & Cardiac Doppler NOW 10/06/19 05:54 EKG NOW Abnormal Labs: Abnormal Lab Results 10/04/19 10/04/19 Range/Units 18:10 18:10 MCH 24.8 L (27-33) pg MCHC 30.2 L (32-36) g/dl RDW 15.2 H (11.5-14.5) % Plt Count 411 H (130-400) K/uL Random Glucose 124 H (74-109) mg/dL Condition at Discharge: (1) Good Discharge Diagnosis: parosymal Atrial fib, converted spontaneously with cardizem VTE Discharge VTE Reason For No Overlap Therapy: Not Indicated Discharge Medications - Discharge Medications Prescriptions: Amiodarone HCl [Pacerone] 200 mg PO DAILY #30 tablet Home Medications: Ambulatory Orders Amiodarone HCl [Pacerone] 100 mg PO DAILY 06/11/19 [Last Taken 10/04/19 08:00] Lisinopril 20 mg PO BID 06/11/19 [Last Taken 10/04/19 08:00] Multivitamin [Multi-Vitamin Daily] 1 each PO DAILY 06/11/19 [Last Taken 10/04/19 10:00] Rivaroxaban [Xarelto] 20 mg PO QHS 06/11/19 [Last Taken 10/03/19 20:00] Simvastatin [Zocor] 10 mg PO QHS 06/11/19 [Last Taken 10/03/19 20:00 10 mg] Escitalopram Oxalate [Lexapro] 20 mg PO DAILY 10/05/19 [Last Taken Unknown] Amiodarone HCl [Pacerone] 200 mg PO DAILY #30 tablet 10/06/19 [Last Taken Unknown] Discharge Plan - Discharge Instructions Activity at Discharge: Increase Activity as Tolerated Diet at Discharge: Low Salt Diet Additional Instructions: follow up with her Dr in [place] when back and if problems return to the hospital while here. increase amiodarone to 200 mg per day and keep the other meds the same Quality Measures - Quality Measures Quality Measures: Atrial Fibrillation & Atrial Flutter: Chronic Anticoagulation Therapy, Advance Directives, Documentation of Current Medications in Medical Record, Elder Maltreatment Screen and Follow-Up Plan, Screening for High Blood Pressure and F/U Documented - Current Medications Quality Measure: Measure #130: Documentation of Current Medications Documentation of Current Medications: <Current Medications Documented/Reviewed> [G8427] - Blood Pressure Screening Quality Measure: Screening for High Blood Pressure and Follow-Up Documented Does Patient Have Any of the Following: Active Dx of HTN Blood Pressure Classification: Hypertensive Reading Systolic Measurement: 119 Diastolic Measurement: 92 Screening for High Blood Pressure: Patient Exclusion, Hx of HTN [G9744] - Atrial Fibrillation and Atrial Flutter Quality Measure: Atrial Fibrillation & Atrial Flutter: Chronic Anticoagulation Therapy Does Patient Have Any of the Following: Transient or Reversible Cause of AF CHADS2 Risk Stratification: Age 75 or Greater, Hypertension Risk Stratification Summary: One or more high risk factors OR more than one moderate risk factor exists. [G8972] Anticoagulation Therapy: <Oral anticoagulant Prescribed> [G9067] - Advance Directives Quality Measure: Measure #47: Care Plan Advance Directives Established: No Advance Directives Information Provided To Patient: No Advance Directives on File: No Living Will: No Power of Leasing Agent: No Advance Care Planning: <Care Plan/Decision Maker Documented; Discussed & Documented> [5473F] - Elder Abuse Suspicion Index Screening: Elder Abuse Suspicion Index Screening Rely on people for bathing, dressing, shopping, banking, etc: No Prevented from getting food, clothes, medication, etc: No Made to feel shamed or threatened by someone: No Forced to sign papers or use money against will: No Feel afraid, touched in ways not wanted or hurt physically: No Poor eye contact, withdrawn, malnourished, cuts or bruises: No Screening Result: Negative result EASI Reference Information: [place] FRANKS, Kiah C, Sg D, Tami Cruz.Development and validation of a tool to assist physicians identification of elder abuse: The Elder Abuse Suspicion Index (EASI ). Journal of Elder Abuse and Neglect, 2008; 20 (3): 276-300. - Elder Maltreatment Screen Quality Measures: Elder Maltreatment Screen and Follow-Up Plan Elder Maltreatment Screen: <Negative, No Follow-Up Plan Required> [I4759]
--- NOTE | 2019-10-06 10:31 | Cardiology Consult ---
DATE OF CONSULTATION: 10/05/2019 REASON FOR CONSULTATION: Atrial fibrillation. HISTORY OF PRESENT ILLNESS: This is a pleasant 73-year-old female with a previous history of atrial fibrillation. She woke up this morning and noticed her heart rate racing and had shortness of breath associated with it. The patient had a history of atrial fibrillation with cardioversion years ago and has been on Amiodarone and Xarelto. She is visiting from [place] and will be returning in November. She denies any chest pain. She states she may have some mild increased shortness of breath over the past six months. She denies any other episodes of palpitations. She denies any lower extremity swelling. Denies any orthopnea or PND. The patient has a history of a concussion on 08/30/19 and fell and hit her head. She had a CT of the head which was negative at that time. She states she did not hold her Xarelto during that time. The patient denies a previous smoking history and denies a history of premature coronary artery disease. She does state both of her parents have pacemakers. REVIEW OF SYSTEMS: Denies chills, fever, and malaise. HEENT - Denies any vision changes or any hearing changes. No epistaxis. No congestion. Respiratory - Negative for cough. Negative for dyspnea. Cardiovascular - Positive for palpitations. Negative for chest pain. Negative for syncope. Endocrine - Denies fatigue or heat or cold intolerance. Gastrointestinal - Denies abdominal pain, nausea, or vomiting. Genitourinary - Denies incontinence or dysuria. Musculoskeletal - Denies any arthralgia or back pain. Skin - Denies any bruising or rash. Neurological - Denies any abnormal gait or confusion. Does have some lightheadedness after the concussion. Psychiatric - Denies anxiety. Hematological - Denies easy bleeding or bruising. SOCIAL HISTORY: Denies smoking, alcohol or illicit drug use. FAMILY HISTORY: Negative for premature coronary artery disease. PAST MEDICAL HISTORY: Atrial fibrillation and hypertension. ALLERGIES: ASPIRIN. MEDICATIONS AT HOME: Include Lexapro 20 mg q day, Xarelto 20 mg q day, Amiodarone 100 mg q day, Lisinopril 20 mg q day, and Zocor 10 mg q.h.s. CURRENT MEDICATIONS: Include Amiodarone 100 mg daily, Lexapro 10 mg q day, Cardizem drip currently at 5 mg per hour, Lisinopril 20 mg q day, Xarelto 20 mg q day, and Zocor 10 mg q.h.s. PHYSICAL EXAMINATION: Vital signs - Blood pressure 112/83, pulse 78, respirations 16, O2 saturation 95%. GENERAL: Alert and oriented times three. HEENT: Normocephalic, atraumatic. Extraocular movements are intact. Pupils are equal and round. NECK: Supple without lymphadenopathy, thyromegaly, or bruit. CARDIAC: Irregularly irregular rhythm. No significant murmur was appreciated. LUNGS: Clear to auscultation in the lung mcdonnell without rales, rhonchi, or wheeze. ABDOMEN: Soft, nontender. Bowel sounds present in all four quadrants. EXTREMITIES: No edema. 2+ pulses bilaterally. SKIN: Warm and dry. DIAGNOSTIC STUDIES: Laboratories - WBC 6.7, hemoglobin 11.7, hematocrit 38.7, platelet count 411, sodium 141, potassium 4.0, chloride 106, CO2 of 22, BUN 14, creatinine 0.9, glucose 124. EKG demonstrates atrial fibrillation with a controlled ventricular response at a rate of 90 b.p.m. No acute changes noted. ASSESSMENT: 1. ATRIAL FIBRILLATION WITH RAPID VENTRICULAR RESPONSE. 2. HYPERTENSION CONTROLLED. PLAN: The patient's rate is currently controlled on a Cardizem drip. We will plan for electrical cardioversion in the morning as patient states she has not missed any Xarelto doses. We will increase the Amiodarone to 200 mg daily. Consider adding Cardizem and Metoprolol to her regimen. The patient will have an echocardiogram performed to assess current LV function. The patient was seen and examined by Dr. Gant who agrees with the above. Thank you for the opportunity to participate in this patient's care. JOB NUMBER: [id number] [facility]
[2019-10-06] MEDS: ESCITALOPRAM 10 MG TABLET PO SCH (10:58)
[2019-10-06] MEDS: RIVAROXABAN 20 MG TABLET PO SCH (10:58)
[2019-10-06] MEDS: LISINOPRIL 20 MG TABLET PO SCH (10:58)
[2019-10-06] MEDS: SIMVASTATIN 10MG TABLET PO SCH (10:59)
[2019-10-06] MEDS ORDERED: AMIODARONE HCL 200 MG TABLET PO SCH (11:00)
== END 2019-10-06 14:10 | disposition home or self-care (01) ==
LOC: ER 18:07 → MEDSURG 19:09
PROVIDERS: ADMIT Emergency Medicine; ATTEND Emergency Medicine
DX: I48.20 Chronic atrial fibrillation, unspecified (principal); I10 Essential (primary) hypertension; R00.2 Palpitations; Z79.01 Long term (current) use of anticoagulants; R06.02 Shortness of breath; M81.0 Age-related osteoporosis without current pathological fracture; K30 Functional dyspepsia
CPT/HCPCS: 80053; 84484; 85025; 93005; 93010; 93306; 99217; 99220; 99285